=== PATIENT | female | born 1970 | race Caucasian/White ===

== ENCOUNTER → 2017-10-31 | Day surgery (SDC) | payer OTHER ==
[~2017-10-31] MED LIST: AMLODIPINE BESY10 MG PO; HYDROCHLOROTHIA25 MG PO; PRENATAL + DHA1 EAC1; PROGESTERONE200 MG; SYNTHROID175 MCG
== END | disposition home or self-care (01) ==
LOC: CIR.AMB 05:55
DX: D25.0 Submucous leiomyoma of uterus (principal); N92.1 Excessive and frequent menstruation with irregular cycle

== ENCOUNTER 2018-01-07 10:39 | Inpatient (IN) | payer OTHER ==
[~2018-01-07] VITALS: Ht 167.6 cm; Wt 114.8 kg
== END 2018-02-06 17:45 | DRG 470 ==
LOC: SURH 02-03 05:46 → O/R 02-03 05:46 → SURH 02-03 11:43
PROVIDERS: Orthopaedic Surgery
PROC: 0SRC0J9 Replacement of Right Knee Joint with Synthetic Substitute, Cemented, Open Approach (ICD-10-PCS; principal; 2018-02-03 14:00)
DX: M17.11 Unilateral primary osteoarthritis, right knee (principal); M85.661 Other cyst of bone, right lower leg; E03.8 Other specified hypothyroidism; I10 Essential (primary) hypertension

== ENCOUNTER 2018-01-14 14:22 | Outpatient (CLI) | payer OTHER | END 2018-01-14 14:29 | disposition home or self-care (01) | LOC: LAB 14:22 → EKG 14:22 | DX: I10 Essential (primary) hypertension (principal) ==